=== PATIENT | male | born 1980 | race Caucasian/White ===

== ENCOUNTER 2024-10-19 13:26 | Emergency (ER) | payer OTHER ==
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
[2024-10-19 15:31] VITALS: BP 123/84; PULSE 90; RESP 18; TEMP 98.7
== END 2024-10-19 15:31 | disposition home or self-care (01) ==
LOC: EC 13:26
DX: S90.121A Contusion of right lesser toe(s) without damage to nail, initial encounter (principal); V89.2XXA Person injured in unspecified motor-vehicle accident, traffic, initial encounter
CPT/HCPCS: 99284